=== PATIENT | male | born 1985 | race Two or more races ===

== ENCOUNTER 2019-12-15 08:27 | Emergency (ER) | payer SELFPAY ==
[~2019-12-15] VITALS: Ht 172.7 cm; Wt 123.0 kg
[2019-12-15] MEDS ORDERED: MORPHINE SULFATE 10 MG/ML CPJ IM ONE (09:15)
[2019-12-15 11:54] VITALS: BP 136/81
== END 2019-12-15 11:57 | disposition home or self-care (01) ==
LOC: ER 08:27
DX: S10.93XA Contusion of unspecified part of neck, initial encounter (principal); S09.90XA Unspecified injury of head, initial encounter; M54.5 Low back pain; Z90.49 Acquired absence of other specified parts of digestive tract; V49.88XA Car occupant (driver) (passenger) injured in other specified transport accidents, initial encounter; Y93.89 Activity, other specified; Y92.89 Other specified places as the place of occurrence of the external cause; Y99.8 Other external cause status
CPT/HCPCS: 70450; 72125; 72131; 96372; 99285; J2270